=== PATIENT | male | born 1960 | race American Indian/Alaskan Native ===

== ENCOUNTER 2022-01-20 10:51 | Outpatient (CLI) | payer OTHER ==
--- NOTE | 2022-01-20 12:39 | Cat Scan Report ---
CT CHEST WITHOUT CONTRAST, LOW-DOSE SCREENING INDICATION / CLINICAL INFORMATION: Personal history of nicotine dependence . TECHNIQUE: Thin section axial imaging performed from the lung apices through the costophrenic sulci u sing low-dose technique. All CT scans at this location are performed using CT dose reduction for ALAR A by means of automated exposure control. COMPARISON: None available. FINDINGS: PERIFISSURAL NODULE(S): None. BENIGN NODULE(S) with Specific Calcifications or Fat: 3 mm calcified granuloma right upper lobe. SOLID NODULE(S): None. PARTIALLY SOLID NODULE(S): None. NONSOLID / GROUND GLASS NODULE(S): None. ENDOBRONCHIAL NODULE(S): None. LUNGS: Minimal peripheral interstitial disease at the upper lobes laterally. PLEURA: No pneumothorax. No significant pleural effusion. HEART: No significant abnormality. AORTIC VALVE CALCIFICATION: None. CORONARY ARTERY CALCIFICATION: None. MEDIASTINUM / MARCIA: No significant abnormality. THORACIC AORTA: No significant abnormality. ADDITIONAL FINDINGS: None. UPPER ABDOMEN: Evaluation is limited due to low-dose technique. 1 mm nonobstructing stone upper pole left kidney. SKELETAL SYSTEM: No significant abnormality. IMPRESSION: 1. Most Suspicious Nodule (if any): No pulmonary nodule. 2. Lung-RADS Category 1: NEGATIVE - Recommendation: Continue annual low dose CT (LDCT) screening in 12 months. - Please see below for additional details. 3. No significant additional findings. Lung-RADS Version 1.1 Assessment Categories (2019) CATEGORY 0: INCOMPLETE - Incomplete exam or Prior chest CT examination(s) being located for comparison - Recommendation: Additional lung cancer screening CT images and/or comparison to prior chest CT exa minations is needed CATEGORY 1: NEGATIVE - No lung nodules OR benign nodules - Recommendation: Continue annual low dose CT (LDCT) screening in 12 months. CATEGORY 2: BENIGN APPEARANCE OR BEHAVIOR - PERIFISSURAL nodule: < 10.0 mm - SOLID nodule: Prior nodule < 6.0 mm or New nodule < 4.0 mm - PARTIALLY SOLID nodule: < 6.0 mm - NONSOLID nodule: < 30 mm or > 30 mm and unchanged or slow growth (< 1.5 mm since last exam) - CATEGORY 3 or 4 nodules unchanged for >= 3 months - Recommendation: Continue annual LDCT screening in 12 months. CATEGORY 3: PROBABLY BENIGN - SOLID nodule: 6.0-7.9 mm at Baseline OR New solid nodule between 4.0-5.9 mm. - PARTIALLY SOLID nodule: >= 6.0 mm with solid component < 6.0 mm OR new < 6.0 mm total diameter - NONSOLID nodule: >= [address] or new - Recommendation: Follow-up LDCT in 6 months. CATEGORY 4A: SUSPICIOUS - SOLID nodule: 8.0-14.9 mm OR Growing < 8.0 mm OR New 6-7.9 mm. - PARTIALLY SOLID nodule: >= 6.0 mm with solid component 6.0-7.9 mm OR New/Growing solid component < 4.0 mm - ENDOBRONCHIAL nodule - Recommendation: Follow-up with LDCT in 3 months; or, PET/CT may be used if there is a solid compon ent to the nodule measuring 8.0 mm or larger. CATEGORY 4B: VERY SUSPICIOUS - Prior SOLID nodule: >= 15.0 mm OR New/Growing component and >= 8.0 mm - PARTIALLY SOLID nodule: solid component >= 8.0 mm OR New/Growing solid component >= 4.0 mm - Recommendation: Follow-up with CT chest with contrast, PET/CT, and or tissue sampling depending on comorbidities and probability of malignancy as determined by the referring clinician. PET/CT may be used when there is a solid component of at least 8.0 mm. For new large nodules that develop on an an nual repeat screening CT, a 1 month LDCT may be recommended to address potentially infectious or infl ammatory conditions. CATEGORY 4X: VERY SUSPICIOUS - CATEGORY 3 or 4 nodules with additional features or imaging findings that increases the suspicion of malignancy. - Recommendation: Follow-up with CT chest with contrast, PET/CT, and or tissue sampling depending on comorbidities and probability of malignancy as determined by the referring clinician. PET/CT may be used when there is a solid component of at least 8.0 mm. For new large nodules that develop on an an nual repeat screening CT, a 1 month LDCT may be recommended to address potentially infectious or infl ammatory conditions. Signer Name: Tony Peace MD Signed: 01/20/2022 12:34 PM Workstation Name: [id number]
== END 2022-01-20 10:52 | disposition home or self-care (01) ==
LOC: CT 10:51
PROVIDERS: ATTEND Family Medicine
DX: Z12.2 Encounter for screening for malignant neoplasm of respiratory organs (principal); F17.210 Nicotine dependence, cigarettes, uncomplicated
CPT/HCPCS: 71271

== ENCOUNTER 2022-02-01 20:21 | Emergency (ER) | payer SELFPAY ==
[2022-02-01 22:01] VITALS: BP 156/107
== END 2022-02-02 02:40 | disposition left against medical advice (07) ==
LOC: ED 20:21
DX: K08.89 Other specified disorders of teeth and supporting structures (principal); Z53.21 Procedure and treatment not carried out due to patient leaving prior to being seen by health care provider

== ENCOUNTER 2022-02-18 10:58 | Outpatient (CLI) | payer OTHER ==
--- NOTE | 2022-02-18 14:17 | Cat Scan Report ---
CT ABDOMEN AND PELVIS WITHOUT AND WITH CONTRAST INDICATION / CLINICAL INFORMATION: R82.90. Hematuria. TECHNIQUE: Axial CT images were obtained through the abdomen and pelvis before and after 100 cc Omnipaque [address] scans at this location are performed using CT dose reduction for ALARA by means of automated exposure control. COMPARISON: None available. FINDINGS: The study is limited by postcontrast imaging only being obtained in the delayed phase. LOWER CHEST: No significant abnormality. LIVER: No significant abnormality. GALLBLADDER: No significant abnormality. BILE DUCTS: No significant abnormality. PANCREAS: No significant abnormality. SPLEEN: No significant abnormality. ADRENALS: No significant abnormality. RIGHT KIDNEY/URETER: There are 3 right renal cysts that appear simple. A insurance service representative medial midpol e cyst on image 55 of series 5 measures up to 1.6 cm. No suspicious renal lesions. Multiple nonobstru ctive right renal stones measure up to 3 mm. No ureteral stones or hydroureteronephrosis. Portions of the distal third of the left ureter are not opacified by contrast. However I do not see suspicious f indings to suggest a significant ureteral lesion. LEFT KIDNEY/URETER: An upper pole nonobstructive stone measures 3 mm. Multiple cysts are seen through out the left kidney without suspicious features, including a lateral mid pole cyst measuring up to 1. 1 cm on image 60 of series 5. No suspicious renal lesions. No ureteral stones or hydroureteronephrosi s. Portions of the distal half of the left ureter are not opacified by contrast. I do not see suspici ous findings to suggest a significant ureteral lesion. STOMACH/SMALL BOWEL: No significant abnormality. COLON: There is descending and sigmoid diverticulosis with mild pericolonic fat stranding noted along the distal third of the descending colon. No other significant abnormality. APPENDIX: No significant abnormality. PERITONEUM: No free fluid. No free air. No fluid collection. LYMPH NODES: No significant adenopathy. VASCULATURE: There is mild generalized atherosclerosis. No other significant abnormality. URINARY BLADDER: No significant abnormality. REPRODUCTIVE ORGANS: No significant abnormality. ADDITIONAL FINDINGS: None. BONES: No significant abnormality IMPRESSION: Small bilateral nonobstructive renal stones as above without other significant abnormalities to expla in the patient's hematuria. Signer Name: Nitesh Graham MD Signed: 02/18/2022 2:13 PM Workstation Name: [id number]
== END 2022-02-18 10:59 | disposition home or self-care (01) ==
LOC: CT 10:58
PROVIDERS: ATTEND Family Medicine
DX: N20.0 Calculus of kidney (principal); R82.90 Unspecified abnormal findings in urine
CPT/HCPCS: 74178; Q9967